=== PATIENT | male | born 1955 | race African-American/Black ===

== ENCOUNTER 2022-06-12 12:50 | Inpatient (IN) | payer OTHER ==
[~2022-06-12] VITALS: Ht 185.4 cm; Wt 95.6 kg
[2022-06-12] MEDS ORDERED: HYDROCORTISONE SOD SUCC 100 MG/2ML INJ VIAL IV ONE (13:00)
[2022-06-12 15:48] LABS: Basophils # (auto) 0.1 10 ^3/uL (0-0.2); Basophils % (auto) 0.6 % (0.0-2.0); Eosinophils # (auto) 0 10 ^3/uL (0-0.8); Eosinophils % (auto) 0.1 % (0.0-7.0); Hematocrit 45.8 % (41.0-53.0); Lymphocytes # (auto) 1.8 10 ^3/uL (0.4-5.4); Lymphocytes % (auto) 13.9 % (10.0-50.0); Mean Corpuscular Hemoglobin 30.3 pg (28.0-32.0); Mean Corpuscular Hgb Conc. 34.9 g/dL (32.0-36.0); Mean Corpuscular Volume 86.9 fL (80.0-100.0); Monocytes % (auto) 8.1 % (0.0-12.0); Neutrophils # (auto) 9.8 10 ^3/uL (1.6-8.6); Neutrophils % (auto) 77.3 % (37.0-80.0); Nucleated Red Blood Cells % 0.1 %; Red Blood Cells 5.27 10^6/uL (4.5-5.90); Red Cell Distribution Width 15.8 % (11.8-14.3); White Blood Cell 12.7 10^3/uL (4.4-10.8)
[2022-06-12] MEDS ORDERED: ONDANSETRON HCL 4 MG/2 ML VIAL IV ONE (17:30)
[2022-06-12] MEDS ORDERED: ACETAMINOPHEN 325 MG TAB PO ONE (20:30)
[2022-06-12 20:52] LABS: Albumin 3.1 g/dL (3.4-5.0); Anion Gap 10 (5-15); BUN/Creatinine Ratio 7.8; Blood Urea Nitrogen 37 mg/dL (7-18); Carbon Dioxide 19 mmol/L (21-32); Chloride 100 mmol/L (98-107); GFR African American 16 mL/min; GFR Non-African American 13 mL/min; Glucose 78 mg/dL (74-106); Magnesium 2.1 mg/dL (1.6-2.6); Potassium 5.2 mmol/L (3.5-5.1); Sodium 129 mmol/L (136-145)
[2022-06-12 20:55] LABS: Alanine Aminotransferase 34 U/L (16-61); Alkaline Phosphatase 65 U/L (45-117); Aspartate Aminotransferase 51 U/L (15-37); Bilirubin, Total 0.5 mg/dL (0.2-1.0)
[2022-06-12] MEDS ORDERED: ACETAMINOPHEN 325 MG TAB PO PRN (21:30)
[2022-06-12] MEDS ORDERED: NITROGLYCERIN 0.4 MG SL TAB SL PRN (21:30)
[2022-06-12] MEDS ORDERED: HYDROcodone-ACET 5/325MG TAB PO PRN (21:30)
[2022-06-12] MEDS ORDERED: MORPHINE SULFATE INJ 2 MG/ml SYRG IV PRN ×2 (21:30)
[2022-06-12] MEDS ORDERED: ALBUMIN 25% 100 ML IV ONE (21:45)
[2022-06-12] MEDS ORDERED: cefTRIAXone 1GM/50ML D5W 50 ML IV ONE (21:45)
[2022-06-12] MEDS ORDERED: IPRATROPIUM BROM 0.5 MG/2.5ML INH SOL NEB PRN (21:45)
[2022-06-12] MEDS ORDERED: ACETAMINOPHEN 500 MG TAB PO PRN (21:45)
[2022-06-12] MEDS ORDERED: ALBUTEROL SULF 2.5 MG/0.5ML(0.5%) NEB SOLN NEB PRN (21:45)
[2022-06-12 22:00] VITALS: BP 87/62
[2022-06-12] MEDS: HEPARIN SODIUM (PORCINE) 5000 UNITS/ML 1ML VIAL SC SCH (23:05)
[2022-06-12 23:23] LABS: Magnesium 1.9 mg/dL (1.6-2.6)
[2022-06-12 23:32] LABS: Cholesterol 111 mg/dL (< 200); HDL Cholesterol 11 mg/dL (40-59); LDL Cholesterol 56 mg/dL (< 100); Triglycerides 206 mg/dL (< 150)
[2022-06-12 23:35] LABS: Thyroid Stimulating Hormone 0.26 uIU/mL (0.358-3.74)
[2022-06-12 23:37] LABS: CRP High Sensitivity > 19.0 mg/dL (< 0.3)
[2022-06-13] MEDS: SODIUM CHLORIDE 0.9% 1,000 ML IV SCH ×5 (02:28→16:35)
[2022-06-13] MEDS: ONDANSETRON HCL 4 MG/2 ML VIAL IV PRN ×2 (04:26→14:42)
[2022-06-13 05:40] LABS: Urine Amorphous Crystal FEW /hpf (None Seen); Urine Bacteria FEW /hpf (None Seen); Urine Blood 1+ /uL (Negative); Urine Hyaline Cast FEW /lpf (0 - 2); Urine Mucus FEW (None Seen); Urine Specific Gravity 1.013 (1.001-1.035); Urine WBC 6 /hpf (0 - 3)
[2022-06-13 05:50] LABS: Alcohol, Urine < 3.0 mg/dL (0-10); Amphetamine Screen, Urine NEGATIVE (NEGATIVE); Barbiturate Scree,Urine NEGATIVE (NEGATIVE); Benzodiazephine Screen, Urine NEGATIVE (NEGATIVE); Cannabinoid Screen, Urine NEGATIVE (NEGATIVE); Cocaine Screen, Urine NEGATIVE (NEGATIVE); Opiate Scree,Urine NEGATIVE (NEGATIVE); Phencyclidine Screen, Urine NEGATIVE (NEGATIVE)
[2022-06-13] MEDS: HEPARIN SODIUM (PORCINE) 5000 UNITS/ML 1ML VIAL SC SCH ×3 (06:19→22:02)
[2022-06-13 07:12] LABS: Alanine Aminotransferase 26 U/L (16-61); Albumin 2.8 g/dL (3.4-5.0); Anion Gap 9 (5-15); Aspartate Aminotransferase 40 U/L (15-37); BUN/Creatinine Ratio 9.4; Blood Urea Nitrogen 42 mg/dL (7-18); Calcium 7.4 mg/dL (8.5-10.1); Carbon Dioxide 13 mmol/L (21-32); Chloride 105 mmol/L (98-107); GFR African American 17 mL/min; GFR Non-African American 14 mL/min; Glucose 102 mg/dL (74-106); Potassium 4.9 mmol/L (3.5-5.1); Sodium 127 mmol/L (136-145)
[2022-06-13 07:15] LABS: Alkaline Phosphatase 49 U/L (45-117); Bilirubin, Total 0.4 mg/dL (0.2-1.0); Total Protein 6.4 g/dL (6.4-8.2)
[2022-06-13 07:58] LABS: Basophils # (auto) 0 10 ^3/uL (0-0.2); Basophils % (auto) 0.2 % (0.0-2.0); Eosinophils # (auto) 0 10 ^3/uL (0-0.8); Hematocrit 38.4 % (41.0-53.0); Hemoglobin 13.5 g/dL (13.5-17.5); Lymphocytes # (auto) 1.7 10 ^3/uL (0.4-5.4); Lymphocytes % (auto) 15.2 % (10.0-50.0); Mean Corpuscular Hemoglobin 31.3 pg (28.0-32.0); Mean Corpuscular Hgb Conc. 35.2 g/dL (32.0-36.0); Mean Corpuscular Volume 89.1 fL (80.0-100.0); Monocytes # (auto) 0.4 10 ^3/uL (0-1.3); Monocytes % (auto) 3.7 % (0.0-12.0); Neutrophils % (auto) 80.9 % (37.0-80.0); Nucleated Red Blood Cells % 0.1 %; Red Blood Cells 4.31 10^6/uL (4.5-5.90); Red Cell Distribution Width 16.3 % (11.8-14.3); White Blood Cell 11.1 10^3/uL (4.4-10.8)
[2022-06-13] MEDS: NOREPINEPHRINE 8 MG/250ML KIT 250 ML IV SCH ×2 (08:09→21:55)
[2022-06-13] MEDS: BUDESONIDE (INHALATION) 180 MCG IH IN SCH ×3 (08:10→22:23)
[2022-06-13] MEDS ORDERED: ceFAZolin 1GM/50ML 50 ML IV ONE (08:46)
[2022-06-13] MEDS: cefTRIAXone 1GM/50ML D5W 50 ML IV SCH (08:47)
[2022-06-13] MEDS: AZITHROMYCIN 500MG/ 250ML 250 ML IV SCH (09:21)
[2022-06-13] MEDS: CHOLECALCIFEROL (VITD3) 2,000 UNIT CAP/TAB PO SCH (09:21)
[2022-06-13] MEDS ORDERED: ASCORBIC ACID 1,000 MG TAB PO SCH (10:00)
[2022-06-13] MEDS ORDERED: DexAMETHasone SOD PHOS 10MG/1ML VIAL INJ IV SCH (10:00)
[2022-06-13] MEDS ORDERED: HYDROCORTISONE SOD SUCC 100 MG/2ML INJ VIAL IV ONE (16:15)
[2022-06-13] MEDS: HYDROCORTISONE SOD SUCC 100 MG/2ML INJ VIAL IV SCH (21:54)
[2022-06-13 22:00] VITALS: BP 122/81
[2022-06-13] MEDS: ALBUTEROL SULF HFA 90MCG INH 200DOSE IN PRN (22:23)
[2022-06-13 22:46] VITALS: BP 122/81
[2022-06-14] MEDS: SODIUM CHLORIDE 0.9% 1,000 ML IV SCH ×3 (02:11→15:00)
[2022-06-14 05:00] VITALS: BP 123/77
[2022-06-14] MEDS: HEPARIN SODIUM (PORCINE) 5000 UNITS/ML 1ML VIAL SC SCH ×3 (06:27→22:17)
[2022-06-14 07:25] LABS: Basophils # (auto) 0.1 10 ^3/uL (0-0.2); Basophils % (auto) 0.4 % (0.0-2.0); Eosinophils # (auto) 0 10 ^3/uL (0-0.8); Hematocrit 35.5 % (41.0-53.0); Hemoglobin 11.8 g/dL (13.5-17.5); Lymphocytes # (auto) 1.7 10 ^3/uL (0.4-5.4); Mean Corpuscular Hemoglobin 29.7 pg (28.0-32.0); Mean Corpuscular Hgb Conc. 33.3 g/dL (32.0-36.0); Mean Corpuscular Volume 89.2 fL (80.0-100.0); Monocytes # (auto) 0.5 10 ^3/uL (0-1.3); Monocytes % (auto) 3.4 % (0.0-12.0); Neutrophils # (auto) 11.8 10 ^3/uL (1.6-8.6); Neutrophils % (auto) 84.2 % (37.0-80.0); Red Blood Cells 3.98 10^6/uL (4.5-5.90); Red Cell Distribution Width 16.4 % (11.8-14.3)
[2022-06-14 08:00] VITALS: BP 105/61
[2022-06-14 08:13] LABS: BUN/Creatinine Ratio 9.3; Calcium 7.7 mg/dL (8.5-10.1); Potassium 4.6 mmol/L (3.5-5.1)
[2022-06-14 09:00] VITALS: BP 102/59
[2022-06-14] MEDS: BUDESONIDE (INHALATION) 180 MCG IH IN SCH ×2 (10:00→19:17)
[2022-06-14] MEDS: cefTRIAXone 1GM/50ML D5W 50 ML IV SCH ×2 (11:22→12:57)
[2022-06-14] MEDS: AZITHROMYCIN 500MG/ 250ML 250 ML IV SCH ×2 (11:22→14:21)
[2022-06-14] MEDS: CHOLECALCIFEROL (VITD3) 2,000 UNIT CAP/TAB PO SCH (11:22)
[2022-06-14] MEDS: HYDROCORTISONE SOD SUCC 100 MG/2ML INJ VIAL IV SCH ×2 (11:23→14:21)
[2022-06-14 13:00] VITALS: BP 105/61
[2022-06-14 16:49] VITALS: BP 121/71
[2022-06-14] MEDS: ALBUTEROL SULF HFA 90MCG INH 200DOSE IN PRN (20:12)
[2022-06-14] MEDS: HYDROCORTISONE 10 MG TAB PO SCH (22:16)
[2022-06-15] MEDS: SODIUM CHLORIDE 0.9% 1,000 ML IV SCH ×2 (04:17→17:10)
[2022-06-15 05:00] VITALS: BP 127/77
[2022-06-15] MEDS: HEPARIN SODIUM (PORCINE) 5000 UNITS/ML 1ML VIAL SC SCH ×2 (06:00→14:03)
[2022-06-15] MEDS ORDERED: ALBUTEROL SULF HFA 90MCG INH 200DOSE IN PRN (08:00)
[2022-06-15] MEDS: cefTRIAXone 1GM/50ML D5W 50 ML IV SCH (09:00)
[2022-06-15 09:30] VITALS: BP 116/76
[2022-06-15] MEDS: CHOLECALCIFEROL (VITD3) 2,000 UNIT CAP/TAB PO SCH (10:00)
[2022-06-15] MEDS: HYDROCORTISONE 10 MG TAB PO SCH (10:00)
[2022-06-15] MEDS: AZITHROMYCIN 500MG/ 250ML 250 ML IV SCH (10:00)
[2022-06-15 12:03] LABS: Albumin 3.2 g/dL (3.4-5.0); Alkaline Phosphatase 48 U/L (45-117); Anion Gap 7 (5-15); Aspartate Aminotransferase 22 U/L (15-37); BUN/Creatinine Ratio 11.1; Bilirubin, Direct < 0.1 mg/dL (0-0.2); Bilirubin, Total 0.2 mg/dL (0.2-1.0); Blood Urea Nitrogen 48 mg/dL (7-18); Carbon Dioxide 19 mmol/L (21-32); Chloride 113 mmol/L (98-107); Creatine Kinase IFCC 78 U/L (39-308); GFR African American 18 mL/min; GFR Non-African American 15 mL/min; Glucose 118 mg/dL (74-106); Phosphorus 2.1 mg/dL (2.5-4.90); Potassium 4.6 mmol/L (3.5-5.1); Sodium 139 mmol/L (136-145); Total Protein 6.3 g/dL (6.4-8.2); Uric Acid 8.1 mg/dL (3.5-7.2)
[2022-06-15 12:11] LABS: Alanine Aminotransferase 25 U/L (16-61)
[2022-06-15] MEDS: BUDESONIDE (INHALATION) 180 MCG IH IN SCH (14:36)
[2022-06-15 17:25] VITALS: BP 121/74
[2022-06-15] MEDS ORDERED: HYDROCORTISONE 10 MG TAB PO SCH (22:00)
== END 2022-06-15 18:16 | disposition short-term general hospital (02) | DRG 177 ==
LOC: ER 12:50 → TELE 21:39 → TELE-WESTW 06-13 22:17
PROVIDERS: ADMIT Registered Nurse; ATTEND Internal Medicine
DX: U07.1 COVID-19 (principal); E43 Unspecified severe protein-calorie malnutrition; J12.82 Pneumonia due to coronavirus disease 2019; N17.0 Acute kidney failure with tubular necrosis; E87.1 Hypo-osmolality and hyponatremia; E27.40 Unspecified adrenocortical insufficiency; I42.0 Dilated cardiomyopathy; I95.9 Hypotension, unspecified; R55 Syncope and collapse; R79.89 Other specified abnormal findings of blood chemistry; E07.9 Disorder of thyroid, unspecified; D49.7 Neoplasm of unspecified behavior of endocrine glands and other parts of nervous system; Z82.49 Family history of ischemic heart disease and other diseases of the circulatory system
CPT/HCPCS: 36415; 70450; 71045; 76775; 80048; 80053; 80061; 80076; 80307; 81001; 82306; 82550; 82728; 83036; 83605; 83615; 83735; 84100; 84443; 84484; 84550; 85025; 85379; 86141; 87040; 87340; 87426; 93005; 93306; 93886; 93970; 94640; 96361; 96365; 96367; 96375; 99291; G0378; J0690; J0696; J1100; J2405; P9047